=== PATIENT | female | born 1985 | race Two or more races ===

== ENCOUNTER 2021-04-07 12:15 | Emergency (ER) | payer OTHER ==
[~2021-04-07] VITALS: Ht 157.5 cm; Wt 63.5 kg
[~2021-04-07 12:15] MED LIST: SYNTHROID75 MCG
== END 2021-04-07 16:05 | disposition home or self-care (01) ==
LOC: ER 12:15
DX: E11.649 Type 2 diabetes mellitus with hypoglycemia without coma (principal); R41.82 Altered mental status, unspecified; E86.0 Dehydration; Z20.822 Contact with and (suspected) exposure to COVID-19